=== PATIENT | female | born 1975 | race Two or more races ===

== ENCOUNTER 2016-09-18 14:21 | Emergency (ER) | payer SELFPAY ==
[2016-09-18 14:29] VITALS: BP 148/66
--- NOTE | 2016-09-18 14:46 | ER Document Report ---
ED General - General Chief Complaint: Toothache Stated Complaint: TOOTH PAIN Time Seen by Provider: 09/18/16 14:38 Mode of Arrival: Ambulatory Information source: Patient TRAVEL OUTSIDE OF THE [place] IN LAST 30 DAYS: No - HPI Onset: Just prior to arrival - 11-year-old female presented to the emergency room today stating she has got discomfort to her #18 tooth and states that is currently fractured. Past Medical History - General Information source: Patient - Social History Smoking Status: Never Smoker Family History: None Renal/ Medical History: Denies: Hx Peritoneal Dialysis Review of Systems - Review of Systems Constitutional: No symptoms reported EENT: No symptoms reported Cardiovascular: No symptoms reported Respiratory: No symptoms reported Gastrointestinal: No symptoms reported Genitourinary: No symptoms reported Female Genitourinary: No symptoms reported Musculoskeletal: No symptoms reported Skin: No symptoms reported Hematologic/Lymphatic: No symptoms reported Neurological/Psychological: No symptoms reported Physical Exam - Vital signs Vitals: Temp Pulse Resp BP Pulse Ox 98.5 F 95 14 148/66 H 98 09/18/16 14:27 09/18/16 14:27 09/18/16 14:27 09/18/16 14:27 09/18/16 14:27 Interpretation: Normal - General General appearance: Appears well, Alert - HEENT Head: Normocephalic, Atraumatic Eyes: Normal Pupils: PERRL Teeth diagram: 1 - DENTAL FRACTURE - Respiratory Respiratory status: No respiratory distress Chest status: Nontender Breath sounds: Normal Chest palpation: Normal - Cardiovascular Rhythm: Regular Heart sounds: Normal auscultation Murmur: No - Abdominal Inspection: Normal Distension: No distension Bowel sounds: Normal Tenderness: Nontender Organomegaly: No organomegaly - Back Back: Normal, Nontender - Extremities General upper extremity: Normal inspection, Nontender, Normal color, Normal ROM , Normal temperature General lower extremity: Normal inspection, Nontender, Normal color, Normal ROM , Normal temperature, Normal weight bearing. No: Madi's sign - Neurological Neuro grossly intact: Yes Cognition: Normal Orientation: AAOx4 [place] Coma Scale Eye Opening: Spontaneous [place] Coma Scale Verbal: Oriented [place] Coma Scale Motor: Obeys Commands Mack Coma Scale Total: 15 Speech: Normal Motor strength normal: LUE, RUE, LLE, RLE Sensory: Normal - Psychological Associated symptoms: Normal affect, Normal mood - Skin Skin Temperature: Warm Skin Moisture: Dry Skin Color: Normal Course - Vital Signs Vital signs: Temp Pulse Resp BP Pulse Ox 98.5 F 95 14 148/66 H 98 09/18/16 14:27 09/18/16 14:27 09/18/16 14:27 09/18/16 14:27 09/18/16 14:27 Discharge - Discharge Condition: Good Disposition: HOME, SELF-CARE Instructions: Toothache ([facility]) Prescriptions: Clindamycin HCl [Cleocin HCl] 150 mg PO TID #30 capsule Naproxen Sodium [Naproxen Sodium ER] 500 mg PO Q12 PRN #20 tablet.sa PRN Reason:
== END 2016-09-18 15:30 | disposition home or self-care (01) ==
LOC: ER 14:21
DX: K02.9 Dental caries, unspecified (principal); K08.89 Other specified disorders of teeth and supporting structures
CPT/HCPCS: 99282

== ENCOUNTER 2016-09-23 09:14 | Emergency (ER) | payer SELFPAY ==
[2016-09-23] MEDS ORDERED: DEXAMETHASONE SOD PHOS INJ 10 MG/1 ML VIAL IV ONE (09:58)
[2016-09-23] MEDS ORDERED: KETOROLAC TROMETHAMINE INJ/PF 30 MG/1 ML SDV IV ONE (09:58)
[2016-09-23] MEDS ORDERED: CLINDAMYCIN 600 MG/D5W RTU 50 ML IV ONE (10:01)
--- NOTE | 2016-09-23 10:02 | ER Document Report ---
ED Oral Problem - General Chief Complaint: Toothache Stated Complaint: TOOTH PAIN Time Seen by Provider: 09/23/16 09:27 Mode of Arrival: Ambulatory Information source: Patient Notes: Patient was seen here 5 days ago and placed on clindamycin for a dental abscess. Patient states that since starting the antibiotic the left upper cheek swelling has gone down although she complains of increased pain and firmness to lower cheek and under her chin. Patient denies any fever. Patient has been compliant with taking the antibiotic but is concerned that the milligram dosage may be to low, as she has taken this medication in the past at higher dosages. TRAVEL OUTSIDE OF THE [place] IN LAST 30 DAYS: No - HPI Patient complains to provider of: Swelling of face, Swelling of jaw Onset: Last week Quality of pain: Achy, Sharp Pain Level: 3 Context: Fractured tooth, Recent antibiotic use Associated symptoms: Decreased appetite, Jaw pain, Toothache. denies: Cough, Fever, Tongue swelling Relieved by: Nothing Similar symptoms previously: Yes Recently seen / treated by doctor/dentist: Yes - Related Data Allergies/Adverse Reactions: latex Allergy (Verified 09/23/16 09:16) Past Medical History - General Information source: Patient - Social History Smoking Status: Never Smoker Chew tobacco use (# tins/day): No Frequency of alcohol use: None Drug Abuse: None Occupation: none Lives with: Family Family History: None Patient has suicidal ideation: No Patient has homicidal ideation: No - Medical History Medical History: Negative Endocrine Medical History: Denies: Hx Diabetes Mellitus Type 2 Renal/ Medical History: Denies: Hx Peritoneal Dialysis Past Surgical History: Reports: Hx Section Review of Systems - Review of Systems Constitutional: No symptoms reported. denies: Fever EENT: Dental problem Cardiovascular: No symptoms reported Respiratory: No symptoms reported Gastrointestinal: Poor appetite. denies: Abdominal pain, Nausea, Vomiting Genitourinary: No symptoms reported Female Genitourinary: No symptoms reported Musculoskeletal: No symptoms reported Skin: No symptoms reported Hematologic/Lymphatic: No symptoms reported Neurological/Psychological: No symptoms reported Physical Exam - Vital signs Vitals: Temp Pulse Resp BP Pulse Ox 98.3 F 86 17 125/70 99 09/23/16 09:16 09/23/16 09:16 09/23/16 09:16 09/23/16 09:16 09/23/16 09:16 - General General appearance: Appears well, Alert In distress: None - HEENT Head: Normocephalic, Atraumatic Eyes: Normal Conjunctiva: Normal Mouth/Lips: Caries Mucous membranes: Normal Teeth diagram: 1 - dental fracture Pharynx: Other - sublingual tenderness, no swelling/induration. No: Potential airway comprom. Neck: Other - submental induration, tenderness/induration under angle of left mandible - Respiratory Respiratory status: No respiratory distress Chest status: Nontender Breath sounds: Normal. No: Productive cough, Rales, Rhonchi, Stridor, Wheezing Chest palpation: Normal - Cardiovascular Rhythm: Regular Heart sounds: S1 appreciated, S2 appreciated Murmur: No - Back Back: Normal, Nontender - Extremities General upper extremity: Normal inspection, Normal ROM General lower extremity: Normal inspection, Normal ROM - Neurological Neuro grossly intact: Yes Cognition: Normal [place] Coma Scale Eye Opening: Spontaneous [place] Coma Scale Verbal: Oriented Mack Coma Scale Motor: Obeys Commands Mack Coma Scale Total: 15 - Psychological Associated symptoms: Normal affect, Normal mood - Skin Skin Temperature: Warm Skin Moisture: Dry Skin Color: Normal Course - Re-evaluation Re-evalutation: 09/23/16 10:[address] olson who advises ct imaging and continuing, although increasing dose of clindamycin 09/23/16 10:15 dr olson to bedside for exam, does not suspect ludwigs angina at this time. 09/23/16 12:[address] report [address] dr olson, agrees with plan for discharge with good return precautions. Pt advised to return tomorrow for repeat examination. Pt also advised of thyroid nodule, pt states that she is aware of thyroid nodule. Pt that she needs to see a provider as well as his surgeon on outpatient basis to further evaluate this thyroid nodule and to possibly have a biopsy but patient verbalized understanding. - Vital Signs Vital signs: Temp Pulse Resp BP Pulse Ox 98.5 F 88 18 119/65 98 09/23/16 12:30 09/23/16 12:30 09/23/16 12:30 09/23/16 12:30 09/23/16 12:30 - Laboratory Result Diagrams: 09/23/16 10:38 09/23/16 10:38 Laboratory results interpreted by me: 09/23/16 10:38 Hgb 11.8 L MCHC 31.9 L RDW 14.9 H Discharge - Discharge Clinical Impression: Dental infection Condition: Stable Disposition: HOME, SELF-CARE Instructions: Clindamycin ([facility]), Oral Narcotic Medication ([facility]), Dental Infection or Abscess ([facility]), Dentist Additional Instructions: Return tomorrow for repeat examination after 9 AM. Return immediately for any new or worsening symptoms. Follow-up with a primary doctor as well as a general surgeon on outpatient basis to further evaluate thyroid nodule. With the dentist, call Monday for an appointment Prescriptions: Clindamycin HCl [Cleocin Hcl] 300 mg PO QID #28 capsule Oxycodone HCl/Acetaminophen [Percocet 5-325 mg Tablet] 1 - 2 tab PO ASDIR PRN # 20 tablet PRN Reason: Referrals: [facility] [Provider Group] - Follow up as needed [facility] [Provider Group] - Follow up as needed [facility] [Provider Group] - Follow up in 3-5 days [facility] [Provider Group] - Follow up in 1 week
[2016-09-23 11:08] LABS: ABSOLUTE BASOPHILS # (AUTO) 0.1 10^3/uL (0.0-0.2); ABSOLUTE EOSINOPHILS # (AUTO) 0.1 10^3/uL (0.0-0.6); ABSOLUTE LYMPHOCYTES (AUTO) 2.2 10^3/uL (0.5-4.7); ABSOLUTE MONOCYTES (AUTO) 0.5 10^3/uL (0.1-1.4); ABSOLUTE NEUT (AUTO) 5.2 10^3/uL (1.7-8.2); BASOPHILS % (AUTO) 0.6 % (0-2); EOSINOPHILS % (AUTO) 1.7 % (0-6); HEMOGLOBIN 11.8 g/dL (12.0-15.5); HGB HCT DIFFERENCE -1.6; LYMPHOCYTES % (AUTO) 27.2 % (13-45); MEAN CORPUSCULAR HEMOGLOBIN 27.7 pg (27.0-33.4); MEAN CORPUSCULAR HGB CONC 31.9 g/dL (32.0-36.0); MEAN CORPUSCULAR VOLUME 87 fl (80-97); MONOCYTES % (AUTO) 6.4 % (3-13); RED BLOOD COUNT 4.25 10^6/uL (3.72-5.28); RED CELL DISTRIBUTION WIDTH 14.9 % (11.5-14.0); SEGMENTED NEUTROPHILS % (AUTO) 64.1 % (42-78); WHITE BLOOD COUNT 8.2 10^3/uL (4.0-10.5)
[2016-09-23 11:27] LABS: ANION GAP 11 (5-19); BLOOD UREA NITROGEN 7 mg/dL (7-20); CALCIUM 9.4 mg/dL (8.4-10.2); CARBON DIOXIDE 27 mmol/L (22-30); CHLORIDE 102 mmol/L (98-107); CREATININE RESULT 0.58 mg/dL (0.52-1.25); GLUCOSE 87 mg/dL (75-110); POTASSIUM 4.3 mmol/L (3.6-5.0)
--- NOTE | 2016-09-23 11:43 | RADIOLOGY REPORT (SQ) ---
EXAM DESCRIPTION: CT SOFT TISSUE NECK WITH COMPLETED DATE/TIME: 09/23/2016 11:20 am REASON FOR STUDY: dental infection, submental swelling COMPARISON: None. TECHNIQUE: Post IV contrasted scanning from skull base through lung apices with review of bone, soft tissue and lung windows. Reconstructed coronal and sagittal MPR images reviewed. All images stored on PACS. All CT scanners at this facility use dose modulation, iterative reconstruction, and/or weight based d osing when appropriate to reduce radiation dose to as low as reasonably achievable (ALARA). [facility]: Dose Right [facility]: CareDose [facility]: Dose Right [facility]: Teradose 4D [facility]: Viewdle CONTRAST TYPE AND DOSE: 75mL Isovue 370- low osmolar. RENAL FUNCTION: None required. The patient is less than 50 years old. RADIATION DOSE: 16.18 mGy. LIMITATIONS: None. FINDINGS: SKULL BASE: Intact. MAJOR SALIVARY GLANDS: No solid or cystic masses. No inflammatory changes. LYMPHADENOPATHY: Submental adenopathy is present. MUCOSAL MASSES OR ASYMMETRY: No mucosal masses or asymmetry. LARYNX/CORDS: No abnormal findings. VASCULAR STRUCTURES: The major vessels are patent. LUNG APICES: Clear. BONES: There is mild soft tissue swelling and edema adjacent to the mandible on left. This is most p rominent on image 50 series 3. No fluid collection such as an abscess is identified. THYROID: Normal size. There is low-density lesion in the left lobe that may represent a cyst. PARANASAL SINUSES: Mucoperiosteal thickening and mucous retention cysts are seen in the maxillary sin uses. OTHER: No other significant finding. IMPRESSION: 1. There is mild submental adenopathy. 2. There is soft tissue swelling subcutaneous edema adjacent to the mandible on the left. No absces s is seen. 3. There is maxillary sinus disease. 4. There is a low-density lesion in the left lobe of the thyroid gland as described. TECHNICAL DOCUMENTATION: JOB ID: [id number] Quality ID # [id number]: Final reports with documentation of one or more dose reduction techniques (e.g., Au tomated exposure control, adjustment of the mA and/or kV according to patient size, use of iterative reconstruction technique) 2010 [employer]- All Rights Reserved
[2016-09-23] MEDS ORDERED: OXYCODONE-ACETAMINOPHEN 5-325 MG TABLET PO ONE (12:29)
[2016-09-23 12:39] VITALS: BP 119/65
== END 2016-09-23 12:45 | disposition home or self-care (01) ==
LOC: ER 09:14
DX: K04.7 Periapical abscess without sinus (principal); K08.89 Other specified disorders of teeth and supporting structures; R22.0 Localized swelling, mass and lump, head
CPT/HCPCS: 99283; 96375; 96365; 36415; 87040; 85025; 80048; 70491; J1885; J1100

== ENCOUNTER 2017-12-16 10:20 | Emergency (ER) | payer SELFPAY ==
[2017-12-16 10:55] VITALS: BP 113/78
--- NOTE | 2017-12-16 10:58 | ER Document Report ---
HPI - HPI Patient complains to provider of: pink eye Onset: Yesterday Onset/Duration: Gradual Quality of pain: Burning Pain Level: 1 Context: Patient presents complaining of bilateral eye irritation with drainage. Patient states that a family member was recently treated for pinkeye and now the whole family has it. Patient is here with her other children with similar complaints. Patient denies wearing glasses or contact lenses. Patient states she has been cleaning her eyes and then apply Neosporin periorbitally. Patient denies getting any Neosporin in her eyes. Associated Symptoms: Other - eye drainage Exacerbated by: Denies Relieved by: Denies Similar symptoms previously: No Recently seen / treated by doctor: No - ROS ROS below otherwise negative: Yes Systems Reviewed and Negative: Yes All other systems reviewed and negative - CONSTITUTIONAL Constitutional: DENIES: Fever, Chills - EENT EENT: REPORTS: Eye problems - bilateral eye redness - DERM Skin Color: Normal Skin Problems: None Past Medical History - General Information source: Patient - Social History Smoking Status: Never Smoker Frequency of alcohol use: None Drug Abuse: None Occupation: none Lives with: Family Family History: None Patient has suicidal ideation: No Patient has homicidal ideation: No - Medical History Medical History: Negative Endocrine Medical History: Denies: Hx Diabetes Mellitus Type 2 Renal/ Medical History: Denies: Hx Peritoneal Dialysis Past Surgical History: Reports: Hx Section - x4 Vertical Provider Document - CONSTITUTIONAL Agree With Documented VS: Yes Exam Limitations: No Limitations General Appearance: WD/WN, No Apparent Distress - INFECTION CONTROL TRAVEL OUTSIDE OF THE [place] IN LAST 30 DAYS: No - HEENT HEENT: Atraumatic, Normocephalic Notes: Bilateral conjunctival irritation with mucoid drainage matting lashes of bilateral eyes. Extraocular movements intact - NECK Neck: Normal Inspection - RESPIRATORY Respiratory: Breath Sounds Normal, No Respiratory Distress - CARDIOVASCULAR Cardiovascular: Regular Rate, Regular Rhythm - MUSCULOSKELETAL/EXTREMETIES Musculoskeletal/Extremeties: MAEW - NEURO Level of Consciousness: Awake, Alert, Appropriate Motor/Sensory: No Motor Deficit - DERM Integumentary: Warm, Dry, No Rash Course - Re-evaluation Re-evalutation: 12/16/17 14:16 Patient presents with symptoms consistent with conjunctivitis. Patient with multiple family members present with similar symptoms. No concern for orbital or preseptal cellulitis at this time. - Vital Signs Vital signs: Temp Pulse Resp BP Pulse Ox 97.7 F 80 18 113/78 99 12/16/17 10:39 12/16/17 10:39 12/16/17 10:39 12/16/17 10:39 12/16/17 10:39 Discharge - Discharge Clinical Impression: Conjunctivitis Qualifiers: Conjunctivitis type: unspecified Laterality: bilateral Qualified Code(s): H10.9 - Unspecified conjunctivitis Condition: Stable Disposition: HOME, SELF-CARE Instructions: Conjunctivitis ([facility]), Eyedrop Use ([facility]) Additional Instructions: Return immediately for any new or worsening symptoms Followup with your primary care provider, call tomorrow to make a followup appointment Good handwashing Prescriptions: Polymyxin B Sulfate/Tmp [Polytrim Oph Soln 10 ml] 1 drop BTH_EYE ASDIR #1 bottle Referrals: [facility] [Provider Group] - Follow up as needed
== END 2017-12-16 11:13 | disposition home or self-care (01) ==
LOC: ER 10:20
DX: H10.9 Unspecified conjunctivitis (principal)
CPT/HCPCS: 99282